=== PATIENT | female | born 1965 | race Caucasian/White ===

== ENCOUNTER 2016-12-05 05:38 | Emergency (ER) | payer BC, OTHER ==
[2016-12-05 05:48] VITALS: TEMP 97.6; BMI 27.1
[2016-12-05] MEDS ORDERED: HYDROmorphone 1 MG INJECTION IV ONE (06:17)
[2016-12-05] MEDS ORDERED: ONDANSETRON HCL 4 MG/2 ML VIAL IV ONE (06:17)
--- NOTE | 2016-12-05 06:48 | EDPRACDOC ---
- General Information Chief Complaint: Back Pain Stated Complaint: BACK PAIN Time Seen by Provider: 12/05/16 06:46 Information Source: Patient Mode Of Arrival: Car Home Medications: Home Medications Albuterol Sulfate [Proventil Hfa] 2 puff INH Q4-6H PRN 02/01/16 Fluticasone Propionate [Flonase Nasal [place]] 2 spray DEMARCO DAILY 02/01/16 Clindamycin HCl 1 cap PO TID 02/06/16 Hydrocodone/Acetaminophen [Hydrocodon-Acetaminophen 5-325] 1 tab PO Q4-6H PRN Oxycodone Immediate Release [Oxycodone Immediate Release (OxyIR)] 5 - 10 mg PO Q4H PRN #14 tab 12/05/16 Allergies/Adverse Reactions: Allergies Allergy/AdvReac Type Severity Reaction Status Date / Time codeine [Codeine] Allergy Intermediate vomiting, Verified 12/05/16 05:48 rash - History of Present Illness Onset: 1 DAY HPI: LBP recent MRI known bulging disc has had steroid injections and on lyrica. tonight pain more severe. no new symptoms, no incontinence of bowel or blader, no F/C. pain has radiated to BLEs, not currently. pain worse with movement. no weakness or numbness. Pain Location: Denies: Flank Pain Severity: Severe Pain Quality: Reports: Sharp Pain Radiation: Reports: No Radiation Blood Type: Unknown Modifying Factors: improves with: Position, Movement Female Associated Signs & Symptoms: Denies: Nausea, Frequency, Vaginal Bleeding , Vomiting, Hematemesis, Diarrhea, Melena, Dysuria, Urgency, Hematuria Oral Intake: Normal Urinary Output: Normal ED Past Medical History - History Reviewed Yes Nurses notes reviewed and agree except as marked - Patient Medical History Neurological History: Reports: Cerebrovascular Accident (1986 DURING VAGINAL DELIVERY NO DEFICITS) Cardiac History: Reports: Hypertension (NOT ON MEDICATION) Respiratory History: Reports: Asthma, Pneumonia (BRONCHIAL PNEUMONIA 11/2015) Psychological History: Denies: Depression Surgical History: Reports: Hysterectomy, Other (MULT ORTHO) - Family Medical History Reports: Hypertension (PARENTS, SIBLINGS), Diabetes (FATHER), Cardiac Disorders (FATHER AND BROTHER). Denies: Cancer, Stroke - Social Medical History Smoking Status: Heavy tobacco smoker (5 or more cigarettes/day or daily pipe/ cigar) EDM Review of Systems - Review of Systems ROS Negative Except as Marked: Yes All systems reviewed and were negative except as marked - Physical Exam Constitutional: Alert (Awake) Oriented to: Time, Person, Place Last recorded Vital Signs: Last Vital Signs Temp 97.6 F 12/05/16 05:40 Pulse 78 12/05/16 05:40 Resp 18 12/05/16 05:40 BP 170/90 12/05/16 05:40 Pulse Ox 98 12/05/16 05:40 Oxygen Pulse Oxygen Saturation 98 O2 Device Room Air Oxygen Flow Rate Fraction of Inspired Oxygen ( FIO2) - HEENT Head: Normal ( normocephalic) Eye Exam: Normal (PERRL, EOMI, Sclera white) Oropharynx: Normal (Pharynx:Moist without exudate,Gums-no swelling) Tympanic Membrane: Normal ENT EAC: Normal TMJ: Normal Nose: No Symptoms Reported (septum midline) Neck: Normal (FROM, trachea at midline) - Respiratory/Cardiovascular Respiratory: Normal - CTA (BBS clear to auscultation without adventitious sounds ) Cardiovascular: Normal (RRR without murmur, gallop or rub) - GI Auscultation: Normal (NABS) Palpation: Normal (Soft,No rebound or guarding, non distended) Tenderness: Non tender Valderrama's Sign: Negative - Musculoskeletal Back: Lumbar TTP (no LE deficits, gait intact). negative: Thoracic Step-off, Lumbar Step-off Extremities: Normal (Normal tone, Pulses 2+ No cyanosis or edema, FROM) - Integumentary Skin: Normal, Warm, Dry Lymphatics: Normal (no adenopathy) - Neurologic Memory Impaired: Normal Motor Function: Normal (Normal tone, Pulses 2+ No cyanosis or edema, FROM) Cranial Nerve: Normal (CN II-X11 intact sensation, strength 5/5) Cerebellar: Normal Mood Description: Normal Perception: Normal - Re-evaluation Re-evaluation 1 Re-evaluation Time: 06:48 (pain sig improved, feels comfortable with plan d/c home) Decision Time to Discharge: 06:49 - Departure Yes I personally saw and evaluated the patient. Disposition: Home Condition: Stable Final Diagnosis: Acute low back pain Instructions: Acute Low Back Pain (ED) Education/Counseling Given To: Patient Education/Counseling Given Regarding: Diagnosis, Follow Up Referrals: Raoul Gilliland MD [Primary Care Provider] - One Week Prescriptions: New Oxycodone Immediate Release [Oxycodone Immediate Release (OxyIR)] 5 - 10 mg PO Q4H PRN #14 tab PRN Reason: Pain No Action Fluticasone Propionate [Flonase Nasal [place]] 2 spray DEMARCO DAILY Albuterol Sulfate [Proventil Hfa] 2 puff INH Q4-6H PRN PRN Reason: Wheezing Hydrocodone/Acetaminophen [Hydrocodon-Acetaminophen 5-325] 1 tab PO Q4-6H PRN PRN Reason: Pain Clindamycin HCl 1 cap PO TID Additional Instructions: follow up with your surgeon as scheduled
[2016-12-05 07:07] VITALS: BP 153/87; PULSE 73
== END 2016-12-05 07:07 | disposition home or self-care (01) ==
LOC: ED 05:38
DX: M54.5 Low back pain (principal)
CPT/HCPCS: 96374; 96375; 99283; J1170; J2405